=== PATIENT | female | born 1945 | race Caucasian/White ===

== ENCOUNTER 2020-10-04 08:01 | Outpatient (REF) | payer MEDICARE, SELFPAY | END 2020-10-04 08:02 | disposition home or self-care (01) | LOC: HO.HMGCLDS 08:01 | PROVIDERS: PCP Internal Medicine; Visit Provider Internal Medicine | DX: Z20.828 Contact with and (suspected) exposure to other viral communicable diseases (principal) | CPT/HCPCS: C9803; U0003 ==

== ENCOUNTER 2020-10-14 15:06 | Outpatient (REF) | payer MEDICARE, SELFPAY ==
--- NOTE | 2020-10-14 15:11 | MM_ITS ---
EXAMINATION: MM SCREENING DIGITAL BREAST TOMOSYNTHESIS, BILATERAL CLINICAL INFORMATION: Screening. Asymptomatic. The lifetime risk of breast cancer based on the Tyrer-Cuzick Model is 2%. COMPARISON: Mammography: 10/09/2019, 08/22/2018, 07/30/2017, 07/02/2016 TECHNIQUE: Digital breast tomosynthesis is performed in both the craniocaudal and mediolateral oblique views along with computer-aided detection (CAD). Synthesized 2D images are generated from the tomosynthesis. FINDINGS: There are scattered areas of fibroglandular density (ACR BI-RADS breast composition Category b). There are no significant masses, abnormal calcifications, or other abnormalities. Inhomogeneous parenchymal pattern is similar to prior exams. No developing density. The axilla and skin contours are unremarkable. MM/MM tomosynthesis screening BI IMPRESSION: No significant changes from prior studies. ASSESSMENT: BI-RADS 1: Negative RECOMMENDATION: Routine annual mammography screening. This patient's information was entered into a reminder system with a target due date for their next mammogram.
== END 2020-10-14 15:07 | disposition home or self-care (01) ==
LOC: HO.MAMMO 15:06
PROVIDERS: PCP Internal Medicine; Visit Provider Internal Medicine
DX: Z12.31 Encounter for screening mammogram for malignant neoplasm of breast (principal)
CPT/HCPCS: 77063; 77067

== ENCOUNTER 2021-01-29 10:52 | Outpatient (REF) | payer MEDICARE, SELFPAY ==
[2021-01-29 13:50] LABS: MANUAL DIFF FLAG NO
[2021-01-29 14:01] LABS: Basophils Absolute Auto 0.1 X10*3/uL (0.0-0.2); Basophils Percent Auto 0.6 % (0-2); Eosinophils Absolute Auto 0.1 X10*3/uL (0.0-0.4); Eosinophils Percent Auto 0.6 % (0-4); Hematocrit 46.2 % (37-47); Hemoglobin 15.1 g/dl (12.0-16.0); Imm Gran Abs Auto 0.03 X10*3/uL (0.00-0.03); Imm Gran Pct Auto 0.4 % (0.0-0.4); Lymphocytes Absolute Auto 2.4 X10*3/uL (1.2-4.9); Lymphocytes Percent Auto 29.7 % (20-40); Mean Corpuscular HGB Conc 32.7 g/dl (31.0-35.0); Mean Corpuscular Hemoglobin 32.1 pg (27.0-33.0); Mean Corpuscular Volume 98.3 fL (80-98); Mean Platelet Volume 9.9 fL (9.4-12.3); Monocytes Absolute Auto 0.6 X10*3/uL (0.1-1.2); Monocytes Percent Auto 7.8 % (2-11); Neutrophils Percent Auto 60.9 % (45-73); Platelet Count 320 X10*3/uL (160-400); Red Cell Distribution Width 12.3 % (11.0-16.0); White Blood Count 8.2 X10*3/uL (4.8-10.8)
[2021-01-29 14:15] LABS: Alanine Aminotransferase 16 U/L (0-31); Albumin Level 4.5 g/dL (3.5-5.0); Alkaline Phosphatase 114 U/L (39-117); Anion Gap 13 (12-20); Aspartate Amino Transferase 22 U/L (5-31); Blood Urea Nitrogen 21 mg/dL (9-16); C Reactive Protein 0.71 mg/dL (< or = 0.50); Calcium 9.3 mg/dL (8.4-10.2); Carbon Dioxide 25 mmol/L (22-29); Chloride 104 mmol/L (96-108); Estimated Glomerular Filt Rate > 60; Glucose Random 88 mg/dL (60-115); Potassium 4.4 mmol/L (3.3-5.1); Sodium 138 mmol/L (135-145); Total Protein 7.7 g/dL (6.5-8.0)
[2021-01-29 14:38] LABS: Free T4 (Free Thyroxine) 1.06 ng/dL (0.71-1.85); Thyroid Stimulating Hormone 1.97 uIU/mL (0.32-4.0)
== END 2021-01-29 10:53 | disposition home or self-care (01) ==
LOC: HO.10HDL 10:52
PROVIDERS: Visit Provider Internal Medicine
DX: I10 Essential (primary) hypertension (principal); R00.2 Palpitations; R07.89 Other chest pain
CPT/HCPCS: 36415; 80053; 82550; 84439; 84443; 85025; 86140

== ENCOUNTER → 2021-01-31 08:50 | Outpatient (REF) | payer MEDICARE, SELFPAY ==
--- NOTE | 2021-01-31 09:15 | CA_ITS ---
Acquisition Time: 2021-01-31 09:55:31 Total Exercise Time: 00:07:31 Test Indications: Chest Pain Medications: Protocol: MATT Max HR: 131 BPM 90% of Pred: 144 BPM Max BP: 130/080 mmHG Max Work Load: 9.3 METS PT EXERCISED ON STD MATT PROTOCOL FOR 730 MIN INTO STAGE 3. MAX HR 131-90% MAX. NO CP . SOME MILD SOB. ST DEP IN INF/LAT LEADS.CLINICALLY EQUIV, ELEC EQUIV. PT MAY NEED MIBI EVAL Referred By: Jacinto Martinez Overread By: TERE MARTINEZ MD
== END ==
LOC: HO.CARD 08:50
PROVIDERS: PCP Internal Medicine; Visit Provider Internal Medicine
DX: R07.9 Chest pain, unspecified (principal); R00.2 Palpitations
CPT/HCPCS: 93017

== ENCOUNTER → 2021-02-12 08:11 | Outpatient (REF) | payer MEDICARE, SELFPAY ==
--- NOTE | ~2021-02-12 | NM_ITS ---
Exercise Myocardial perfusion study Indication: NSVT to evaluate for myocardial ischemia Technique: The patient was brought in for an exercise perfusion study on 02/12/2021. Patient performed exercise as per Bj protocol and was injected 25 mCi of sestamibi was given intravenously one target HR was achieved. Images were obtained using the SPECT gamma camera interlaced with the gating device. Images were obtained in supine position. Resting perfusion study was performed on 02/13/2021. Patient was administered 25 mCi of sestamibi intravenously at rest. Images were then obtained in supine position. Images obtained with and without CT attenuation. Total DLP 68 mGy-cm. Images were processed with the software and compared side to side in short axis, horizontal long axis and vertical long axis views. Findings: The stress perfusion study showed both attenuated and not attenuated corrected images show normal uptake of radiotracer in all segments of LV myocardium. The gated study shows normal LV systolic function with calculated LVEF of greater than 70 %. LV cavity is normal in size. The gated study shows normal systolic wall thickening and contraction of all segments. There is no transient ischemic dilation. Resting study shows no change in perfusion pattern compared to stress perfusion study. Gating at rest reveals normal systolic wall motion with ejection fraction at greater than 70 %. The findings are consistent with normal myocardial perfusion. NM/NM damaris perf SPECT rest & str Impression: 1. Normal myocardial perfusion 2. Gated LVEF is greater than 70% 3. Transient ischemic dilatation not present Stress EKG is positive for ischemia
--- NOTE | 2021-02-12 08:30 | CA_ITS ---
Acquisition Time: 2021-02-12 08:16:11 Total Exercise Time: 00:07:14 Test Indications: Abnormal Treadmill Test Medications: AMLODIPINE ATENOLOL LESINOPRIL Protocol: MATT Max HR: 133 BPM 92% of Pred: 144 BPM Max BP: 180/080 mmHG Max Work Load: 8.8 METS PT EXERCISED ON STD MATT PROTOCOL FOR 714 INTO STAGE 3. MAX HR 133-92%MAX. NO CP BUT PT C/O SOB. STDEP OF 2MM IN INF/LAT LEADS. OCC PVC'S AND PAC'S. NL BP RESPONSE. CLINICALLY AND ELEC POSITIVE. AWAIT SCAN RESULTS. Referred By: Jacinto Martinez Overread By: TERE MARTINEZ MD
== END ==
LOC: HO.CARD 08:11
PROVIDERS: Visit Provider Internal Medicine
DX: R94.39 Abnormal result of other cardiovascular function study (principal); I47.2 Ventricular tachycardia; R06.02 Shortness of breath
CPT/HCPCS: 78452; 93017; A9500

== ENCOUNTER → 2021-02-17 12:51 | Outpatient (BNVA) | payer MEDICARE, SELFPAY | PROVIDERS: PCP Internal Medicine; Visit Provider Internal Medicine Cardiovascular Disease | DX: I10 Essential (primary) hypertension (principal); R94.39 Abnormal result of other cardiovascular function study; Z79.899 Other long term (current) drug therapy | CPT/HCPCS: 93005; 99202 ==

== ENCOUNTER → 2021-04-02 14:43 | Outpatient (REF) | payer MEDICARE, SELFPAY ==
--- NOTE | 2021-04-02 14:45 | CA_ITS ---
Transthoracic Echocardiogram Patient (Last, First, Middle): Jeniffer Zaldivar, Gender: Female Date of : 1945 Age: 76 Procedure Date: 04/02/2021 Procedure Type: Transthoracic Echocardiogram Location: OP Height: 167.64 cm Weight: 68.04 kg BSA: 1.77 m2 Heart Rate: bpm BP: 128 / 76 mmHg Bankruptcy Legal Assistant: JENNIFER Referring MD: Neil Gary MD Symptoms: R94.39 - Abnormal result of other cardiovascular function study Study Quality: Good ECG Rhythm: Sinus Conclusions: - The left ventricular systolic function is normal. The visually estimated ejection fraction is between 60-65%. - Mildly increased right ventricular cavity size. - There is mild mitral annular calcification. There is mild mitral valve regurgitation. - There is mild tricuspid valve regurgitation. Findings Left Ventricle Normal left ventricular cavity size. There is normal left ventricular wall thickness. The left ventricular systolic function is normal. The visually estimated ejection fraction is between 60-65%. There is no evidence of regional wall motion abnormalities. E/E prime ratio is between 8 and 15 consistent with indeterminate filling pressures. Evidence suggests grade I (mild) diastolic dysfunction. Right Ventricle Mildly increased right ventricular cavity size. There is normal right ventricular systolic function. Atria Mild biatrial enlargement. Aortic Valve There is a normal trileaflet aortic valve. There is no aortic valve stenosis. There is no aortic valve regurgitation. Mitral Valve There is mild mitral annular calcification. There is mild mitral valve regurgitation. There is no mitral valve stenosis. Pulmonic Valve The pulmonic valve was not well visualized. There is mild pulmonic valve regurgitation. Tricuspid Valve Normal tricuspid valve structure. There is mild tricuspid valve regurgitation. Top normal RVSP. Great Vessels The aortic annulus, sinuses of valsalva, and asc aorta are normal in size. Venous The inferior vena cava is normal in size and collapses greater than 50% with inspiration. Pericardium/Pleural There is no evidence of pericardial effusion. Prior Study Comparison No prior study available for comparison. Measurements 2D Linear Measurements IVSd: 1.07 0.6-0.9/0.6-1.0 cm LVIDd: 4.22 3.9-5.3/4.2-5.9 cm LVIDd Index: 2.38 2.4-3.2/2.2-3.1 cm/m2 LVIDs: 2.34 2.0-3.6 cm LVPWd: 1.06 0.7-1.1 cm Ao Root: 3.20 2.1-3.5 cm LA Diam: 3.80 2.7-3.8/3.0-4.0 cm LAIDs Index: 2.15 1.5-2.3 cm/m2 LV Mass: 188.13 67-162/88-224 g LV Mass Index: 106.29 43-95/49-115 g/m2 LVOT Diam: 2.00 3.0+(-)1.3 cm 2D Systolic Function EF 4C: 63.50 >55% EF 2C: 60.80 >55% EF BiP: 62.10 >55% Mitral Valve MV Pk E: 0.88 MV PK A: 0.99 MV Decel Time: 222.00 E/A: 0.90 E'Lateral: 8.90 E'Medial: 4.84 E/E' Med: 18.20 E/E' Lat: 9.90 PHT: 65.00 MVA PHT: 3.38 Decel Harper: 3.98 Aortic Valve AoV Pk Peterson: 1.49 AoV Mn Peterson: 1.02 AoV VTI: 0.33 AoV Pk Grad: 9.00 Aov Mn Grad: 5.00 AKHIL Cont.VTI: 2.13 LVOT LVOT Pk Peterson: 1.06 LVOT Mn Peterson: 0.64 LVOT VTI: 0.22 LVOT Pk Grad: 4.00 LVOT Mn Grad: 2.00 LVOT Diam: 2.00 LVOT Area: 3.14 Diastolic Function MV Pk E: 0.88 MV Pk A: 0.99 E/A: 0.90 E'Medial: 4.84 E/E' Med: 18.20 E' Laterial: 8.90 E/E' Lat: 9.90 Tricuspid Valve TR Pk Peterson: 2.85 TR Pk Grad: 32.00 RA Press: 3.00 RVSP: 35.00 Great Vessels Aorta Ao Root-2D: 3.20 2.0-3.7 cm Ao Asc: 3.10 2.1-3.4 cm Updated in Other Vendor System with Status of Final Luke Silverman MD electronically signed on 04/04/2021 3:35:36 PM with status of Final
== END ==
LOC: HO.CARD 14:43
PROVIDERS: Visit Provider Internal Medicine Cardiovascular Disease
DX: R06.02 Shortness of breath (principal); I10 Essential (primary) hypertension; R94.39 Abnormal result of other cardiovascular function study
CPT/HCPCS: 93306

== ENCOUNTER → 2021-04-17 08:43 | Outpatient (REF) | payer MEDICARE, SELFPAY ==
--- NOTE | 2021-04-17 11:45 | ECG_ITS ---
Hook-up date: 2021-04-17 08:58:00 Duration: 28:36:00 Test Indications: PALPITATIONS Medications: 58487 QRS complexes 496 Ventricular ectopics which represent <1 % of total QRS comp. 23 Supraventricular ectopics which represent <1 % of total QRS comp. * Paced QRS complexs which represent % of total QRS comp. VENTRICULAR ECTOPY 486 Isolated 0 Bigeminal Cycles 5 Couplets 0 Runs 0 Beats in Runs * Beats LONGEST at * BPM at :: -- * Beats FASTEST at * BPM at :: -- SUPRAVENTRICULAR ECTOPY 19 Isolated 2 Couplets 0 Runs 0 Beats in Runs * Beats LONGEST at * BPM at :: -- * Beats FASTEST at * BPM at :: -- HEART RATES 45 MIN at 04:48:11 2021-04-18 62 AVG 83 MAX at 08:01:17 2021-04-18 LONGEST RR 1.6720 secs at 08:40:44 2021-04-18 S-T LEVELS Channel 1 - 128 mm at 08:58:00 2021-04-17 - 128 mm at 08:58:00 2021-04-17 Channel 2 - 128 mm at 08:58:00 2021-04-17 - 128 mm at 08:58:00 2021-04-17 Channel 3 - 128 mm at 02:81:71 -- - 128 mm at 02:81:71 Underlying rhythm is sinus; Average ventricular rate 62/min; range 45-83/min; Rare PVCs- mostly isolated; some couplets; Rare PACs; Patient diary not available for review. Referred By: Neil Gary Overread By: SCOTT YARBROUGH
== END ==
LOC: HO.CARD 08:43
PROVIDERS: PCP Internal Medicine; Referring Provider Internal Medicine; Visit Provider Internal Medicine Cardiovascular Disease
DX: R00.2 Palpitations (principal)
CPT/HCPCS: 93226

== ENCOUNTER → 2021-05-01 10:49 | Outpatient (REF) | payer MEDICARE, SELFPAY ==
--- NOTE | 2021-05-01 10:54 | HM_ITS ---
INDICATION: Palpitation. INTERPRETATION: The patient was hooked up to cardiac event monitor from 05/01/2021 to 05/31/2021 for a total of 30 days. The patient's baseline rhythm was normal sinus rhythm with heart rate varying from 60 to 80 beats per minute. There were no arrhythmias noted. The patient reported few events of palpitation that correlated with sinus rhythm. CONCLUSION: Cardiac event monitor is remarkable: 1. Baseline normal sinus rhythm with no significant arrhythmias. 2. The patient reported palpitations correlated with sinus rhythm. MD CONCEPCION Zurita/MODL / [id number]
== END ==
LOC: HO.CARD 10:49
PROVIDERS: PCP Internal Medicine; Visit Provider Internal Medicine Cardiovascular Disease
DX: R00.2 Palpitations (principal)
CPT/HCPCS: 93270

== ENCOUNTER → 2021-08-11 09:54 | Outpatient (BNVA) | payer MEDICARE, SELFPAY | PROVIDERS: PCP Internal Medicine; Referring Provider Internal Medicine; Visit Provider Internal Medicine Cardiovascular Disease | DX: R94.39 Abnormal result of other cardiovascular function study (principal); I10 Essential (primary) hypertension | CPT/HCPCS: 99212 ==

== ENCOUNTER 2021-11-10 09:13 | Outpatient (REF) | payer MEDICARE, SELFPAY ==
--- NOTE | ~2021-11-10 | MM_ITS ---
EXAMINATION: MM SCREENING DIGITAL BREAST TOMOSYNTHESIS, BILATERAL CLINICAL INFORMATION: Screening. Asymptomatic. The lifetime risk of breast cancer based on the Tyrer-Cuzick Model is 2%. COMPARISON: Mammography: 10/14/2020, 10/09/2019, 08/22/2018 TECHNIQUE: Digital breast tomosynthesis is performed in both the craniocaudal and mediolateral oblique views along with computer-aided detection (CAD). Synthesized 2D images are generated from the tomosynthesis. FINDINGS: There are scattered areas of fibroglandular density (ACR BI-RADS breast composition Category b). There are no significant masses, abnormal calcifications, or other abnormalities. There are some scattered round and vascular calcifications. The axilla and skin contours are unremarkable. No developing density. No significant changes. MM/MM tomosynthesis screening BI IMPRESSION: No mammographic evidence of malignancy. ASSESSMENT: BI-RADS 2: Benign RECOMMENDATION: Routine annual mammography screening. This patient's information was entered into a reminder system with a target due date for their next mammogram.
== END 2021-11-10 09:14 | disposition home or self-care (01) ==
LOC: HO.MAMMO 09:13
PROVIDERS: Visit Provider Internal Medicine
DX: Z12.31 Encounter for screening mammogram for malignant neoplasm of breast (principal)
CPT/HCPCS: 77063; 77067

== ENCOUNTER 2022-02-16 09:23 | Outpatient (REF) | payer MEDICARE, SELFPAY ==
[2022-02-16 11:42] LABS: MANUAL DIFF FLAG NO
[2022-02-16 11:55] LABS: Basophils Absolute Auto 0.1 X10*3/uL (0.0-0.2); Basophils Percent Auto 0.7 % (0-2); Eosinophils Absolute Auto 0.2 X10*3/uL (0.0-0.4); Eosinophils Percent Auto 3.1 % (0-4); Hematocrit 44.9 % (37.0-47.0); Hemoglobin 14.7 g/dl (12.0-16.0); Imm Gran Abs Auto 0.04 X10*3/uL (0.00-0.03); Imm Gran Pct Auto 0.6 % (0.0-0.4); Lymphocytes Absolute Auto 2.7 X10*3/uL (1.2-4.9); Lymphocytes Percent Auto 38.8 % (20-40); Mean Corpuscular HGB Conc 32.7 g/dl (31.0-35.0); Mean Corpuscular Hemoglobin 32.2 pg (27.0-33.0); Mean Corpuscular Volume 98.5 fL (80.0-98.0); Mean Platelet Volume 9.9 fL (9.4-12.3); Monocytes Absolute Auto 0.7 X10*3/uL (0.1-1.2); Monocytes Percent Auto 9.8 % (2-11); Neutrophils Absolute Auto 3.3 x10*3/uL (2.0-8.3); Platelet Count 251 X10*3/uL (160-400); Red Blood Count 4.56 X10*6/uL (4.20-5.50); Red Cell Distribution Width 12.7 % (11.0-16.0)
[2022-02-16 12:06] LABS: Alanine Aminotransferase 23 U/L (0-31); Albumin Level 4.1 g/dL (3.5-5.0); Alkaline Phosphatase 107 U/L (39-117); Anion Gap 12 (12-20); Aspartate Amino Transferase 23 U/L (5-31); Blood Urea Nitrogen 19 mg/dL (9-16); Calcium 9.4 mg/dL (8.4-10.2); Carbon Dioxide 24 mmol/L (22-29); Chloride 107 mmol/L (96-108); Cholesterol 183 mg/dL; Estimated Glomerular Filt Rate > 60; Glucose Fasting 90 mg/dL (60-99); HDL Cholesterol 45 mg/dL; LDL Cholesterol Calculated 105 mg/dl; Potassium 4.6 mmol/L (3.3-5.1); Sodium 138 mmol/L (135-145); Total Protein 7.1 g/dL (6.5-8.0); Triglycerides 168 mg/dL
== END 2022-02-16 09:24 | disposition home or self-care (01) ==
LOC: HO.HMGCLDS 09:23
PROVIDERS: Visit Provider Internal Medicine
DX: Z00.00 Encounter for general adult medical examination without abnormal findings (principal); E78.00 Pure hypercholesterolemia, unspecified; I10 Essential (primary) hypertension
CPT/HCPCS: 36415; 80053; 80061; 85025

== ENCOUNTER 2022-02-20 10:45 | Outpatient (REF) | payer MEDICARE, SELFPAY ==
--- NOTE | ~2022-02-20 | MM_ITS ---
EXAMINATION: BONE DENSITOMETRY CLINICAL INDICATION: Asymptomatic menopausal state. COMPARISON: Baseline BD dated 02/08/2007. TECHNIQUE: Using a [employer] DXA System (software version: 13.1) manufactured by [employer], dual-energy x-ray absorptiometry was performed of the lumbar spine and left hip. The images are of good technical quality. Summary results are attached. FINDINGS: AP SPINE L1-L4: Current: BMD 0.973 g/cm2, Z-score -0.3, T-score -1.7, osteopenia, 8.6% decrease from baseline (<5% change is not significant). Baseline: BMD 1.065 g/cm2. LEFT FEMUR, NECK: Current: BMD 0.883 g/cm2, Z-score 0.7, T-score -1.1, osteopenia. Baseline: BMD 0.901 g/cm2. LEFT FEMUR, TOTAL: Current: BMD 0.766 g/cm2, Z-score -0.3, T-score -1.9, osteopenia, 16.5% decrease from baseline (<5% change is not significant). Baseline: BMD 0.917 g/cm2. IDENTIFIED RISK FACTORS: Secondary osteoporosis (early menopause). Hysterectomy. Bilateral oophorectomy. HISTORY OF FRACTURE: None listed. MEDICATIONS: Calcium supplement and/or multivitamin. Vitamin D. MM/XR DEXA axial skeleton IMPRESSION: 1. DIAGNOSIS: Osteopenia based on the lowest T-score value of -1.9 in the total femur applying World Health Organization criteria. 2. 10-YEAR FRACTURE RISK PREDICTION, FRAX: Major osteoporotic fracture (clinical spine, forearm, hip or shoulder) 11.1%. Hip fracture 2.1%. 3. Treatment Recommendations: NOF guidelines recommend consideration for treatment in postmenopausal women and men age 50 and older presenting with the following: -A hip or vertebral (clinical or morphometric) fracture. -T-score less than or equal to -2.5 at the femoral neck or spine after appropriate evaluation to exclude secondary causes. -Low bone mass at the hip or spine and a 10-year fracture probability by FRAX of greater than or equal to 3% for hip fracture or greater than or equal to 20% for major osteoporotic fracture based on the [place] adapted WHO algorithm. 4. Other Recommendations: All treatment decisions require clinical judgment and consideration of individual patient factors, including patient preferences, comorbidities, previous drug use, risk factors not captured in the FRAX model (e.g. frailty, falls, vitamin D deficiency, increased bone turnover, interval significant decline in bone density) and possible under or overestimation of fracture risk by FRAX. Additional medical evaluation for secondary cause of low bone mineral density may be appropriate. FUTURE SCAN RECOMMENDATION: People with diagnosed cases of osteoporosis or at high risk for fracture should have regular bone mineral density tests. For patients eligible for Medicare, routine testing is allowed once every 2 years. The testing frequency can be increased to one year for patients who have rapidly progressing disease, those who are receiving or discontinuing medical therapy to restore bone mass, or have additional risk factors.
== END 2022-02-20 10:46 | disposition home or self-care (01) ==
LOC: HO.MAMMO 10:45
PROVIDERS: Visit Provider Internal Medicine
DX: Z13.820 Encounter for screening for osteoporosis (principal); M85.80 Other specified disorders of bone density and structure, unspecified site; Z78.0 Asymptomatic menopausal state
CPT/HCPCS: 77080

== ENCOUNTER → 2022-08-04 13:12 | Outpatient (BNVA) | payer MEDICARE, SELFPAY | PROVIDERS: PCP Internal Medicine; Referring Provider Internal Medicine; Visit Provider Internal Medicine Cardiovascular Disease | DX: I10 Essential (primary) hypertension (principal) | CPT/HCPCS: 93005; 99212 ==

== ENCOUNTER 2022-11-19 09:26 | Outpatient (REF) | payer MEDICARE, SELFPAY | END 2022-11-19 09:27 | disposition home or self-care (01) | LOC: HO.MAMMO 09:26 | PROVIDERS: PCP Internal Medicine; Visit Provider Internal Medicine | DX: Z12.31 Encounter for screening mammogram for malignant neoplasm of breast (principal) | CPT/HCPCS: 77063; 77067 ==

== ENCOUNTER 2023-04-15 08:30 | Outpatient (REF) | payer MEDICARE, SELFPAY ==
[2023-04-15 11:21] LABS: MANUAL DIFF FLAG NO
[2023-04-15 11:39] LABS: Basophils Absolute Auto 0.1 X10*3/uL (0.0-0.2); Basophils Percent Auto 0.8 % (0-2); Eosinophils Absolute Auto 0.2 X10*3/uL (0.0-0.4); Eosinophils Percent Auto 2.6 % (0-4); Hematocrit 46.3 % (37.0-47.0); Hemoglobin 15.1 g/dl (12.0-16.0); Imm Gran Abs Auto 0.03 X10*3/uL (0.00-0.03); Imm Gran Pct Auto 0.4 % (0.0-0.4); Lymphocytes Absolute Auto 3.2 X10*3/uL (1.2-4.9); Lymphocytes Percent Auto 41.4 % (20-40); Mean Corpuscular HGB Conc 32.6 g/dl (31.0-35.0); Mean Corpuscular Volume 98.1 fL (80.0-98.0); Mean Platelet Volume 9.5 fL (9.4-12.3); Monocytes Absolute Auto 0.7 X10*3/uL (0.1-1.2); Monocytes Percent Auto 8.8 % (2-11); Neutrophils Absolute Auto 3.6 x10*3/uL (2.0-8.3); Platelet Count 291 X10*3/uL (160-400); Red Blood Count 4.72 X10*6/uL (4.20-5.50); Red Cell Distribution Width 12.9 % (11.0-16.0); White Blood Count 7.8 X10*3/uL (4.8-10.8)
[2023-04-15 11:56] LABS: Alanine Aminotransferase 20 U/L (0-31); Albumin Level 4.2 g/dL (3.5-5.0); Alkaline Phosphatase 97 U/L (39-117); Anion Gap 11 (12-20); Aspartate Amino Transferase 27 U/L (5-31); Bilirubin Total 1.2 mg/dL (0.0-1.0); Blood Urea Nitrogen 20 mg/dL (9-16); Calcium 9.5 mg/dL (8.4-10.2); Carbon Dioxide 25 mmol/L (22-29); Chloride 107 mmol/L (96-108); Cholesterol 182 mg/dL; Estimated Glomerular Filt Rate 57; Glucose Fasting 89 mg/dL (60-99); HDL Cholesterol 44 mg/dL; LDL Cholesterol Calculated 106 mg/dl; Potassium 4.4 mmol/L (3.3-5.1); Sodium 139 mmol/L (135-145); Total Protein 7.2 g/dL (6.5-8.0); Triglycerides 160 mg/dL
[2023-04-15 12:11] LABS: Vitamin D 25-OH Total 48.9 ng/mL (>30)
== END 2023-04-15 08:31 | disposition home or self-care (01) ==
LOC: HO.HMGCLDS 08:30
PROVIDERS: PCP Internal Medicine; Visit Provider Internal Medicine
DX: I10 Essential (primary) hypertension (principal); E78.00 Pure hypercholesterolemia, unspecified; K57.90 Diverticulosis of intestine, part unspecified, without perforation or abscess without bleeding; M85.80 Other specified disorders of bone density and structure, unspecified site
CPT/HCPCS: 36415; 80053; 80061; 82306; 85025

== ENCOUNTER 2023-11-26 09:22 | Outpatient (REF) | payer MEDICARE, SELFPAY ==
--- NOTE | ~2023-11-26 | MM_ITS ---
EXAMINATION: MM SCREENING DIGITAL BREAST TOMOSYNTHESIS, BILATERAL CLINICAL INFORMATION: Screening. Asymptomatic. COMPARISON: Mammography: 11/19/2022, 11/10/2021, 10/14/2020, and dating back to 2014. TECHNIQUE: Digital breast tomosynthesis is performed in both the craniocaudal and mediolateral oblique views along with computer-aided detection (CAD). Synthesized 2D images are generated from the tomosynthesis. FINDINGS: There are scattered areas of fibroglandular density (ACR BI-RADS breast composition Category b). There are no suspicious masses, suspicious grouped calcifications, or areas of architectural distortion in either breast. The parenchymal pattern is stable from prior exams. No skin or axillary abnormality. MM/MM tomosynthesis screening BI IMPRESSION: No mammographic evidence of malignancy. ASSESSMENT: BI-RADS BI-RADS 1 - Negative RECOMMENDATION: Routine annual mammography screening. 1 year F/U This examination should not preclude the clinical evaluation of a suspicious palpable abnormality. This patient's information was entered into a reminder system with a target due date for their next mammogram.
== END 2023-11-26 09:23 | disposition home or self-care (01) ==
LOC: HO.MAMMO 09:22
PROVIDERS: PCP Internal Medicine; Visit Provider Internal Medicine
DX: Z12.31 Encounter for screening mammogram for malignant neoplasm of breast (principal)
CPT/HCPCS: 77063; 77067

== ENCOUNTER → 2023-11-26 09:30 | Outpatient (BNV) | payer MEDICARE, SELFPAY | PROVIDERS: PCP Internal Medicine; Visit Provider Radiology Diagnostic Radiology | DX: Z12.31 Encounter for screening mammogram for malignant neoplasm of breast (principal) | CPT/HCPCS: 77063; 77067 ==

== ENCOUNTER 2024-04-17 10:22 | Outpatient (REF) | payer MEDICARE, SELFPAY ==
[2024-04-17 11:12] LABS: MANUAL DIFF FLAG NO
[2024-04-17 11:18] LABS: Basophils Absolute Auto 0.1 X10*3/uL (0.0-0.2); Basophils Percent Auto 0.7 % (0-2); Eosinophils Absolute Auto 0.2 X10*3/uL (0.0-0.4); Eosinophils Percent Auto 3.1 % (0-4); Hematocrit 46.5 % (37.0-47.0); Hemoglobin 15.4 g/dl (12.0-16.0); Imm Gran Abs Auto 0.02 X10*3/uL (0.00-0.03); Imm Gran Pct Auto 0.3 % (0.0-0.4); Lymphocytes Absolute Auto 2.5 X10*3/uL (1.2-4.9); Lymphocytes Percent Auto 36.2 % (20-40); Mean Corpuscular HGB Conc 33.1 g/dl (31.0-35.0); Mean Corpuscular Hemoglobin 32.2 pg (27.0-33.0); Mean Corpuscular Volume 97.1 fL (80.0-98.0); Mean Platelet Volume 9.6 fL (9.4-12.3); Monocytes Absolute Auto 0.6 X10*3/uL (0.1-1.2); Monocytes Percent Auto 9.3 % (2-11); Neutrophils Absolute Auto 3.4 x10*3/uL (2.0-8.3); Neutrophils Percent Auto 50.4 % (45-73); Platelet Count 266 X10*3/uL (160-400); Red Blood Count 4.79 X10*6/uL (4.20-5.50); White Blood Count 6.8 X10*3/uL (4.8-10.8)
[2024-04-17 11:19] LABS: Appearance Urine Clear; Color Urine Yellow; Glucose Urine UA Negative (Negative); Leukocyte Esterase Urine Moderate (2+) (Negative); Nitrite Urine Negative (Negative); Specific Gravity - Urine 1.015 (1.005-1.025); UMIC TRIGGER UA YES; Urine Blood Negative (Negative); Urine Ketones Negative (Negative); Urine Protein Negative (Neg-Trace)
[2024-04-17 11:31] LABS: Bacteria Urine None Seen (None Seen); Hyaline Casts Urine 0-2 /LPF (0-2); RBC Urine 0-2 /HPF (0-2); Squamous Epithelial Cell Urine 0-2 /HPF (0-2); WBC Urine 0-5 /HPF (0-5)
[2024-04-17 11:34] LABS: Alanine Aminotransferase 18 U/L (0-31); Albumin Level 4.3 g/dL (3.5-5.0); Alkaline Phosphatase 100 U/L (39-117); Anion Gap 15 (12-20); Aspartate Amino Transferase 23 U/L (5-31); Blood Urea Nitrogen 20 mg/dL (9-16); Calcium 10.1 mg/dL (8.4-10.2); Carbon Dioxide 25 mmol/L (22-29); Chloride 108 mmol/L (96-108); Cholesterol 178 mg/dL (<200); Estimated Glomerular Filt Rate 53; Glucose Fasting 88 mg/dL (60-99); HDL Cholesterol 52 mg/dL (>40); LDL Cholesterol Calculated 104 mg/dL (<100); Potassium 4.8 mmol/L (3.3-5.1); Sodium 143 mmol/L (135-145); Total Protein 7.7 g/dL (6.5-8.0); Triglycerides 113 mg/dL (<150)
== END 2024-04-17 10:23 | disposition home or self-care (01) ==
LOC: HO.10HDL 10:22
PROVIDERS: Visit Provider Internal Medicine
DX: K57.90 Diverticulosis of intestine, part unspecified, without perforation or abscess without bleeding (principal); I12.9 Hypertensive chronic kidney disease with stage 1 through stage 4 chronic kidney disease, or unspecified chronic kidney disease; N18.9 Chronic kidney disease, unspecified
CPT/HCPCS: 36415; 80053; 80061; 81001; 85025

== ENCOUNTER 2024-08-07 09:30 | Outpatient (AMB) | payer MEDICARE, SELFPAY ==
--- NOTE | 2024-08-07 09:36 | MHC.OFFVIS ---
Vital Signs 08/07/24 09:37 Height 5 ft 6 in Weight 143 lb 4.807 oz BMI 23.1 BP 128/82 Blood Pressure Location Lt brachial Position Sitting Pulse 60 Intake Visit Reasons: 2 year fu w/ ekg Intake Note: 2 year follow-up with ekg feeling ok on her bp cuff irregular beat come up [employer] Required: No Allergies Sulfa (Sulfonamide Antibiotics) Allergy (Verified 02/17/21 13:11) joint pain, fever, rash Medication List - Last Reconciled 08/07/24 by Neil Gary MD amlodipine 5 mg PO DAILY atenolol 50 mg PO DAILY lisinopril 20 mg PO DAILY HPI Comments Details: Jeniffer comes for follow-up. She has been doing very well overall. She has been exercising and walks for 30 minutes on a regular basis. Denies any exertional chest pain or shortness of breath. Occasionally notices irregular heartbeat with measuring blood pressure. Denies any symptoms of palpitation. No prolonged irregular heartbeat or palpitation. No lightheadedness, syncope. No orthopnea, PND, leg edema. Her blood pressures at home are generally well controlled. [facility] Medical History HTN (hypertension) Family History Father No problems noted. Mother CVD (cardiovascular disease) Review of Systems Const Denies chills, Denies fatigue, Denies fever(s), Denies frequent falls, Denies weakness, Denies weight gain and Denies weight loss ENT Denies dizziness Card Denies chest pain, Denies leg edema, Denies lightheadedness, Denies palpitations, Denies dyspnea, Denies dyspnea on exertion, Denies orthopnea and Denies other (loss of consciousness) Resp Denies cough, Denies dyspnea and Denies dyspnea on exertion GI Denies hematochezia and Denies change in stool character Musc Denies abnormal gait, Denies muscle weakness, Denies numbness, Denies radiating pain into limb and Denies tingling Neuro Denies abnormal gait, Denies dizziness, Denies frequent falls, Denies numbness, Denies tingling and Denies weakness Endo Denies fatigue and Denies palpitations Physical Exam Vital Signs: Last Vital Signs Pulse 60 08/07/24 09:37 BP 128/82 08/07/24 09:37 BMI result Body Mass Index 23.1 Const General: cooperative, comfortable, no acute distress, alert, awake and well groomed Nutritional Appearance: thin Orientation/consciousness: patient oriented x3 Limitations: no limitations HEENT Head: Yes normocephalic and Yes atraumatic Neck Neck: Yes trachea midline, Yes supple and Yes no JVD Resp Effort & Inspection: normal respiratory effort Auscultation: clear to auscultation bilaterally Cardio Jugular venous distension: no JVD Palpation: normal PMI Rate: regular rate Rhythm: regular rhythm Heart sounds: S1 normal heart sound present and S2 normal heart sound present GI Auscultation: normal bowel sounds Skin General skin exam: no rashes or lesions noted Neuro General: patient oriented x3 and no focal motor deficits Extrem General: Yes no clubbing, cyanosis or edema Psych Appearance: grossly normal Office Procedures EKG Details: EKG shows normal sinus rhythm with septal QS pattern which is unchanged with nonspecific ST T wave changes [id number], Complete Assessment & Plan Assessment & Plan (1) HTN (hypertension): Code(s): I10 - Essential (primary) hypertension Category: Medical Plan: Hypertension which is currently well optimized on current medications. At home blood pressure is well optimized. She occasionally feels irregular heartbeat which most consistent with PVCs but no symptoms related to it. No change in therapy. Advised to continue maintain activity level as tolerated. Noted some minor EKG changes suggestive of maybe hypertensive heart disease. Will set up for an echocardiogram near future to assess any changes in LV function and morphology. This was discussed with her. Continue to monitor for any symptoms advised to call me with any new symptoms. Will follow up in the clinic in 2 years, sooner p.r.n.. Thank you for allowing me to partake in his care Orders: Orders CA echo transthoracic complete Today I10 - Essential (primary) hypertension Coding Level of Care Code Est Pt Level 3 (98658) Diagnoses HTN (hypertension) I10 CPT Codes EKG - CPT: 91084-[id number], Complete ([id number])
[2024-08-07 09:37] VITALS: BP 128/82; PULSE 60; BMI 23.1
== END 2024-08-07 09:58 | disposition home or self-care (01) ==
PROVIDERS: PCP Internal Medicine; Visit Provider Internal Medicine Cardiovascular Disease
DX: I10 Essential (primary) hypertension (principal)
CPT/HCPCS: 93010; 99213

== ENCOUNTER → 2024-08-07 09:30 | Outpatient (BNVA) | payer MEDICARE, SELFPAY | PROVIDERS: PCP Internal Medicine; Visit Provider Internal Medicine Cardiovascular Disease | DX: I10 Essential (primary) hypertension (principal) | CPT/HCPCS: 93005; 99212 ==

== ENCOUNTER → 2024-08-14 07:52 | Outpatient (REF) | payer MEDICARE, SELFPAY ==
--- NOTE | 2024-08-14 07:59 | CA_ITS ---
Transthoracic Echocardiogram Patient (Last, First, Middle): Jeniffer Zaldivar, Gender: Female Date of : 1945 Age: 79 Procedure Date: 08/14/2024 Procedure Type: Transthoracic Echocardiogram Location: OP Height: 167.64 cm Weight: 64.86 kg BSA: 1.73 m2 Heart Rate: bpm BP: 124 / 80 mmHg Cashier Clerk: Referring MD: Neil Gary MD Conche Operator: Neil Gary MD Symptoms: I10 - Essential (primary) hypertension Study Quality: Good ECG Rhythm: Sinus Conclusions: - 1. Normal LV ejection fraction of 60-65% 2. Moderately dilated right ventricle with preserved systolic function 3. Moderately dilated left atrium 4. Mild mitral regurgitation 5. Mildly elevated right ventricular systolic pressure 6. Upper limits of normal ascending aortic size at 3.5 cm 7. Trivial pericardial effusion Findings Left Ventricle Normal left ventricular size, thickness, and systolic function. The visually estimated ejection fraction is between 60-65%. Spectral Doppler is indicative of an impaired relaxation filling pattern. E/E prime ratio is between 8 and 15 consistent with indeterminate filling pressures. Right Ventricle Moderately increased right ventricular cavity size. There is normal right ventricular systolic function. Atria The left atrium is moderately dilated. There is no evidence of interatrial shunt. The right atrium is likely dilated. Aortic Valve Normal aortic valve structure and function. There is no aortic valve stenosis. There is no aortic valve regurgitation. Mitral Valve There is mild anterior and posterior mitral leaflet thickening. There is mild mitral annular calcification. There is mild mitral valve regurgitation. There is no mitral valve stenosis. Pulmonic Valve The pulmonic valve is likely normal. Tricuspid Valve Normal tricuspid valve structure. There is mild tricuspid valve regurgitation. Normal right atrial pressure. Mild pulmonary hypertension is present. Great Vessels The pulmonary artery was not well visualized. Small plaque is seen in the sino tubular ridge. Venous The inferior vena cava is normal in size and collapses greater than 50% with inspiration. Pericardium/Pleural There is a trivial pericardial effusion. Prior Study Comparison Changes noted compared to prior study dated: 04/02/2021. RSVP is mildly elevated Measurements 2D Linear Measurements IVSd: 1.02 0.6-0.9/0.6-1.0 cm LVIDd: 3.94 3.9-5.3/4.2-5.9 cm LVIDd Index: 2.28 2.4-3.2/2.2-3.1 cm/m2 LVIDs: 2.62 2.0-3.6 cm LVPWd: 1.00 0.7-1.1 cm Ao Root: 2.90 2.1-3.5 cm LA Diam: 4.10 2.7-3.8/3.0-4.0 cm LAIDs Index: 2.37 1.5-2.3 cm/m2 LV Mass: 156.57 67-162/88-224 g LV Mass Index: 90.50 43-95/49-115 g/m2 LVOT Diam: 2.00 3.0+(-)1.3 cm Mitral Valve MV Pk E: 0.96 MV PK A: 0.96 MV Decel Time: 219.00 E/A: 1.00 E'Lateral: 9.79 E'Medial: 5.11 E/E' Med: 18.70 E/E' Lat: 9.80 PHT: 64.00 MVA PHT: 3.44 Decel Gordon: 4.36 Aortic Valve AoV Pk Peterson: 1.33 AoV Mn Peterson: 0.93 AoV VTI: 0.35 AoV Pk Grad: 7.00 Aov Mn Grad: 4.00 AKHIL Cont.VTI: 1.86 LVOT LVOT Pk Peterson: 0.94 LVOT Mn Peterson: 0.57 LVOT VTI: 0.21 LVOT Pk Grad: 4.00 LVOT Mn Grad: 2.00 LVOT Diam: 2.00 LVOT Area: 3.14 Diastolic Function MV Pk E: 0.96 MV Pk A: 0.96 E/A: 1.00 E'Medial: 5.11 E/E' Med: 18.70 E' Laterial: 9.79 E/E' Lat: 9.80 Right Ventricle TAPSE (mm): 28.00 Tricuspid Valve TR Pk Peterson: 3.15 TR Pk Grad: 40.00 RA Press: 3.00 RVSP: 43.00 Great Vessels Aorta Ao Root-2D: 2.90 2.0-3.7 cm Ao Asc: 3.50 2.1-3.4 cm Pulmonary Valve PV Pk Peterson: 1.14 Peak PV Grad: 5.00 Updated in Other Vendor System with Status of Final Neil Gary MD electronically signed on 08/15/2024 11:45:50 AM with status of Final
== END ==
LOC: HO.CARD 07:52
PROVIDERS: PCP Internal Medicine; Visit Provider Internal Medicine Cardiovascular Disease
DX: I10 Essential (primary) hypertension (principal)
CPT/HCPCS: 93306

== ENCOUNTER → 2024-08-14 07:59 | Outpatient (BNV) | payer MEDICARE, SELFPAY | PROVIDERS: PCP Internal Medicine; Visit Provider Internal Medicine Cardiovascular Disease | DX: I34.0 Nonrheumatic mitral (valve) insufficiency (principal); I36.1 Nonrheumatic tricuspid (valve) insufficiency | CPT/HCPCS: 93306 ==

== ENCOUNTER 2024-12-01 09:10 | Outpatient (REF) | payer MEDICARE, SELFPAY ==
--- NOTE | ~2024-12-01 | MM_ITS ---
EXAMINATION: MM SCREENING DIGITAL BREAST TOMOSYNTHESIS, BILATERAL CLINICAL INFORMATION: Screening. Asymptomatic. COMPARISON: Mammography: Comparison is made with available priors TECHNIQUE: Digital breast mammography with tomosynthesis is performed in both the craniocaudal and mediolateral oblique views along with computer-aided detection (CAD). FINDINGS: There are scattered areas of fibroglandular density (ACR BI-RADS breast composition Category b). There are no significant masses, abnormal calcifications, or other abnormalities. MM/MM tomosynthesis screening BI IMPRESSION: No mammographic evidence of malignancy. ASSESSMENT: BI-RADS BI-RADS 1 - Negative RECOMMENDATION: Routine annual mammography screening. 1 year F/U This examination should not preclude the clinical evaluation of a suspicious palpable abnormality. This patient's information was entered into a reminder system with a target due date for their next mammogram. Electronically signed by: Rufina Norman DO 12/10/2024 08:46 AM [facility]
== END 2024-12-01 09:11 | disposition home or self-care (01) ==
LOC: HO.MAMMO 09:10
PROVIDERS: PCP Internal Medicine; Visit Provider Internal Medicine
DX: Z12.31 Encounter for screening mammogram for malignant neoplasm of breast (principal)
CPT/HCPCS: 77063; 77067

== ENCOUNTER → 2024-12-01 09:30 | Outpatient (BNV) | payer MEDICARE, SELFPAY | PROVIDERS: PCP Internal Medicine; Visit Provider Internal Medicine | DX: Z12.31 Encounter for screening mammogram for malignant neoplasm of breast (principal) | CPT/HCPCS: 77063; 77067 ==

== ENCOUNTER 2025-05-01 07:54 | Outpatient (AMB) | payer MEDICARE, SELFPAY ==
--- NOTE | 2025-05-01 07:54 | A.OFFPC_ITS ---
Vital Signs 05/01/25 07:58 05/01/25 08:12 Height 5 ft 6 in Weight 63.957 kg BMI 22.8 BP 142/78 H 118/76 Respiration 18 Pulse 63 Pulse Source Pulse Oximeter Temp 97.8 F Temp Source Temporal Artery Scan Pulse Oximetry (%) 96 Oxygen Delivery Method Room Air Intake Visit Reasons: Sick visit [employer] Worker Required: No Accompanied by: Self / Same As Patient Allergies Sulfa (Sulfonamide Antibiotics) Allergy (Verified 05/01/25 07:58) joint pain, fever, rash Medication List - Last Reconciled 05/01/25 by RASHID Raymond amlodipine 5 mg PO DAILY amoxicillin-pot clavulanate 875-125 mg 1 tab PO BID atenolol 50 mg PO DAILY benzonatate 100 mg PO BID PRN lisinopril 20 mg PO DAILY triamcinolone acetonide 0.1% appl topical BID HPI HPI Comments History of Present Illness Details 80-year-old female with history of hyper tension presents to the office today to establish care and for management of chronic conditions. She is reporting upper respiratory symptoms ongoing for 3 weeks. She reports her granddaughter visited her home and was unwell. About 2 days later, she developed a cough with chest congestion with difficulty expectorating, nasal congestion, and initially fatigue. She states symptoms have been improving and then worsening again. She is now experiencing sinus pain with right-sided dental pain. Denies any fevers, chills, sore throat, headaches, myalgias, shortness of breath, wheezing, or chest pain. She states she is still active but often times feels weak following the activity. She takes Claritin on a daily basis and has been also taking Robitussin. She is compliant with her amlodipine, atenolol, lisinopril for management of her blood pressure. ROS: General: No fevers, malaise, unintentional weight loss HEENT: See HPI Cardiovascular: No chest pain, palpitations, or leg edema Respiratory: See HPI GI: No abdominal pain, nausea, vomiting, diarrhea, constipation, melena, hematochezia : No dysuria, hematuria, increased urinary frequency, decreased urinary output MSK: No myalgia, back pain Neuro: No headaches, weakness, paresthesias Skin: No rashes or lesions EXAM: Constitutional - Awake and Alert, No apparent distress Eyes - PERRLA, EOMI Nose- septum midline. Right-sided maxillary sinus tenderness to palpation/percussion Cardiovascular - S1S2, RRR, No edema Respiratory - Normal lung expansion, Normal respiratory effort, No respiratory distress, CTA bilaterally Extremities - no calf tenderness bilaterally, no swelling Skin - Warm/Dry Neurological - Alert & oriented x3 Psychological - Appropriate affect [facility] Medical History HTN (hypertension) Family History Father No problems noted. Mother CVD (cardiovascular disease) Questionnaire PHQ-9 Over the last 2 weeks, how often have you been bothered by any of the following problems? 2. Feeling down, depressed, or hopeless: more than half the days 3. Trouble falling or staying asleep, or sleeping too much: not at all 4. Feeling tired or having little energy: not at all 5. Poor appetite or overeating: several days 6. Feeling bad about yourself - or that you are a failure or have let yourself or your family down: not at all 7. Trouble concentrating on things, such as reading the newspaper or watching television: not at all 8. Moving or speaking so slowly that other people could have noticed. Or the opposite - being so fidgety or restless that you have been moving around a lot more than usual: not at all 9. Thoughts that you would be better off or of hurting yourself in some way: not at all Source: Developed by Drs. Kristofer Bob, Mariann Mckeon, Michael Cleveland and colleagues, with an educational raquel from [employer]. Physical exam (Primary Care) Vital Signs: Last Vital Signs Temp 97.8 F 05/01/25 07:58 Pulse 63 05/01/25 07:58 Resp 18 05/01/25 07:58 BP 118/76 05/01/25 08:12 Pulse Ox 96 05/01/25 07:58 Oxygen Delivery Method Room Air 05/01/25 07:58 BMI result Body Mass Index 22.8 Coding Level of Care Code New Pt Level 4 (48266) Complex EM visit Add On G2211 Diagnoses Sinusitis J32.9 URI (upper respiratory infection) J06.9 HTN (hypertension) I10 Assessment & Plan Assessment & Plan (1) Sinusitis: Code(s): J32.9 - Chronic sinusitis, unspecified Category: Medical Plan: Augmentin 875 mg b.i.d. prescribed for acute sinusitis. Recommend Claritin and can add saline for nasal rinses. Recommend increased hydration and rest. (2) URI (upper respiratory infection): Code(s): J06.9 - Acute upper respiratory infection, unspecified Category: Medical Plan: Suspect symptoms initially related to viral upper infection now complicated by bacterial sinus infection. Recommend symptomatic management with Robitussin, Claritin, saline rinses. She can also use benzonatate as needed for cough which is prescribed. Given duration of symptoms, no indication for viral testing. (3) HTN (hypertension): Code(s): I10 - Essential (primary) hypertension Category: Medical Plan: Controlled on recheck with blood pressure 118/76. Continue amlodipine 5 mg daily, atenolol 50 mg daily, and lisinopril 20 mg daily. Will evaluate renal function electrolyte levels. Low-sodium diet. Plan Follow-up as scheduled for annual physical exam. Labs ordered to be reviewed at annual exam. Take Augmentin as prescribed without skipping doses. Recommend probiotic Orders: Orders Basic Metabolic Panel Today I10 - Essential (primary) hypertension Complete Blood Count Auto Diff Today I10 - Essential (primary) hypertension Liver Panel Today Z00.00 - Encounter for general adult medical examination without abnormal findings TSH reflex Free T4 Today Z00.00 - Encounter for general adult medical examination without abnormal findings Vitamin D 25-OH Total Today Z00.00 - Encounter for general adult medical examination without abnormal findings Lipid Panel Today Z00.00 - Encounter for general adult medical examination without abnormal findings Hemoglobin A1c Today Z00.00 - Encounter for general adult medical examination without abnormal findings Medications: New amoxicillin-pot clavulanate 875-125 mg 1 tab PO BID 14 tabs 0RF benzonatate 100 mg PO BID PRN 30 caps 0RF cough
[2025-05-01 07:58] VITALS: BP 142/78; PULSE 63; RESP 18; TEMP 36.6; O2SAT 96; BMI 22.8
[2025-05-01 08:12] VITALS: BP 118/76
== END 2025-05-01 08:20 | disposition home or self-care (01) ==
LOC: HO.HMCHD 07:55
PROVIDERS: PCP Internal Medicine; Visit Provider Physician Assistant
DX: J32.9 Chronic sinusitis, unspecified (principal); J06.9 Acute upper respiratory infection, unspecified; I10 Essential (primary) hypertension

== ENCOUNTER → 2025-05-01 07:54 | Outpatient (BNVA) | payer MEDICARE, SELFPAY | PROVIDERS: PCP Internal Medicine; Visit Provider Physician Assistant | DX: Z13.89 Encounter for screening for other disorder (principal) | CPT/HCPCS: 99202 ==

== ENCOUNTER 2025-05-01 08:32 | Outpatient (REF) | payer MEDICARE, SELFPAY ==
[2025-05-01 10:37] LABS: MANUAL DIFF FLAG NO
[2025-05-01 10:49] LABS: Basophils Absolute Auto 0.1 X10*3/uL (0.0-0.2); Basophils Percent Auto 0.8 % (0-2); Eosinophils Absolute Auto 0.2 X10*3/uL (0.0-0.4); Eosinophils Percent Auto 2.6 % (0-4); Imm Gran Abs Auto 0.03 X10*3/uL (0.00-0.03); Imm Gran Pct Auto 0.4 % (0.0-0.4); Lymphocytes Absolute Auto 2.2 X10*3/uL (1.2-4.9); Mean Corpuscular HGB Conc 32.6 g/dl (31.0-35.0); Mean Corpuscular Hemoglobin 31.8 pg (27.0-33.0); Mean Corpuscular Volume 97.5 fL (80.0-98.0); Mean Platelet Volume 9.8 fL (9.4-12.3); Monocytes Absolute Auto 0.7 X10*3/uL (0.1-1.2); Neutrophils Absolute Auto 4.3 x10*3/uL (2.0-8.3); Neutrophils Percent Auto 57.2 % (45-73); Platelet Count 313 X10*3/uL (160-400); Red Blood Count 4.72 X10*6/uL (4.20-5.50); Red Cell Distribution Width 12.9 % (11.0-16.0); White Blood Count 7.4 X10*3/uL (4.8-10.8)
[2025-05-01 10:54] LABS: Estimated Average Glucose 108 mg/dL; Hemoglobin A1c % 5.4 % (<6.0)
[2025-05-01 11:35] LABS: Alanine Aminotransferase 18 U/L (0-31); Albumin Level 4.3 g/dL (3.5-5.0); Alkaline Phosphatase 96 U/L (39-117); Anion Gap 9 (12-20); Aspartate Amino Transferase 28 U/L (5-31); Bilirubin Direct 0.2 mg/dL (0.0-0.5); Bilirubin Total 0.7 mg/dL (0.0-1.0); Blood Urea Nitrogen 24 mg/dL (9-16); Calcium 9.8 mg/dL (8.4-10.2); Carbon Dioxide 28 mmol/L (22-29); Chloride 109 mmol/L (96-108); Cholesterol 177 mg/dL (<200); Estimated Glomerular Filt Rate 57; Glucose Random 100 mg/dL (60-115); HDL Cholesterol 46 mg/dL (>40); LDL Cholesterol Calculated 107 mg/dL (<100); Potassium 4.4 mmol/L (3.3-5.1); Sodium 142 mmol/L (135-145); Total Protein 7.7 g/dL (6.5-8.0); Triglycerides 122 mg/dL (<150)
[2025-05-01 11:37] LABS: TSH reflex Free T4 2.17 uIU/mL (0.32-4.0); Vitamin D 25-OH Total 60.5 ng/mL (>30)
== END 2025-05-01 08:33 | disposition home or self-care (01) ==
LOC: HO.10HDL 08:32
PROVIDERS: Visit Provider Physician Assistant
DX: Z00.00 Encounter for general adult medical examination without abnormal findings (principal); I10 Essential (primary) hypertension; J32.9 Chronic sinusitis, unspecified; J06.9 Acute upper respiratory infection, unspecified; Z13.1 Encounter for screening for diabetes mellitus
CPT/HCPCS: 36415; 80048; 80061; 80076; 82306; 83036; 84443; 85025; 99202

== ENCOUNTER 2025-05-11 10:21 | Outpatient (AMB) | payer MEDICARE, SELFPAY ==
--- NOTE | 2025-05-11 10:39 | A.OFFPC_ITS ---
Vital Signs 05/11/25 10:55 Height 5 ft 6 in Weight 63.503 kg BMI 22.6 BP 112/60 Respiration 16 Pulse 63 Pulse Source Pulse Oximeter Temp 97.7 F Temp Source Temporal Artery Scan Pulse Oximetry (%) 99 Oxygen Delivery Method Room Air Intake Visit Reasons: Cough [employer] Required: No Accompanied by: Self / Same As Patient Allergies Sulfa (Sulfonamide Antibiotics) Allergy (Verified 05/11/25 10:54) joint pain, fever, rash Medication List - Last Reconciled 05/11/25 by RASHID Raymond amlodipine 5 mg PO DAILY atenolol 50 mg PO DAILY fluticasone propionate 50 mcg/actuation (Allergy Relief (fluticasone)) 1 spray intranasal Q12H lisinopril 20 mg PO DAILY prednisone 40 mg (2 x 20 mg) PO DAILY triamcinolone acetonide 0.1% appl topical BID HPI HPI Comments History of Present Illness Details 80-year-old female with history of hyper tension presents to the office today for follow-up. She was seen in the office 10 days ago for upper respiratory symptoms/sinusitis and was prescribed Augmentin with good improvement in symptoms. She reports the sinus pain, congestion, rhinorrhea did resolve. However about 2 days ago, she began experiencing and occasionally productive cough again reported as more annoying. There is no shortness of breath or wheezing. No fevers, chills, sore throat. She had been using benzonatate but stopped this given her improvement in symptoms. She does continue using loratadine on a daily basis. ROS: General: No fevers, malaise, unintentional weight loss HEENT: See HPI Cardiovascular: No chest pain, palpitations, or leg edema Respiratory: See HPI GI: No abdominal pain, nausea, vomiting, diarrhea, constipation, melena, hematochezia : No dysuria, hematuria, increased urinary frequency, decreased urinary output MSK: No myalgia, back pain Neuro: No headaches, weakness, paresthesias Skin: No rashes or lesions EXAM: Constitutional - Awake and Alert, No apparent distress Eyes - PERRLA, EOMI Nose- septum midline. Right-sided maxillary sinus tenderness to palpation/percussion Cardiovascular - S1S2, RRR, No edema Respiratory - Normal lung expansion, Normal respiratory effort, No respiratory distress, CTA bilaterally Extremities - no calf tenderness bilaterally, no swelling Skin - Warm/Dry Neurological - Alert & oriented x3 Psychological - Appropriate affect completed amoxillin 2 days later cough back better than last time. some what productive. no sob, wheezing. no asthma copd. no fevers not as bothersome nasal congestion, some headache. [facility] Medical History HTN (hypertension) Family History Father No problems noted. Mother CVD (cardiovascular disease) Physical exam (Primary Care) Vital Signs: Last Vital Signs Temp 97.7 F 05/11/25 10:55 Pulse 63 05/11/25 10:55 Resp 16 05/11/25 10:55 BP 112/60 05/11/25 10:55 Pulse Ox 99 05/11/25 10:55 Oxygen Delivery Method Room Air 05/11/25 10:55 BMI result Body Mass Index 22.6 Coding Level of Care Code Est Pt Level 4 (96047) Diagnoses Cough R05.9 Assessment & Plan Assessment & Plan (1) Cough: Code(s): R05.9 - Cough, unspecified Category: Medical Plan: Upper respiratory symptoms including cough improved following Augmentin by cough as recurred though is not severe it is only occasionally productive. No significant wheezing on exam to suggest bronchitis and Augmentin should have effectively treated any typical bacterial infection and sinusitis. Given cough is only occasionally productive and there are no fevers, it is unlikely this is an atypical pneumonia. We did discuss the possibility of cough being related to lisinopril. We will trial a short course of prednisone 40 mg for 3 days to see if there is improvement in symptoms. She is also recommended to continue using antihistamine as well as nasal sprays. Should there be no improvement, will hold lisinopril to monitor for any improvement in symptoms. Medications: New prednisone 40 mg (2 x 20 mg) PO DAILY 6 tabs 0RF fluticasone propionate 50 mcg/actuation (Allergy Relief (fluticasone)) administer into each nostril 1 spray intranasal Q12H 16 grams 2RF
[2025-05-11 10:55] VITALS: BP 112/60; PULSE 63; RESP 16; TEMP 36.5; O2SAT 99; BMI 22.6
== END 2025-05-11 11:35 | disposition home or self-care (01) ==
LOC: HO.HMCHD 10:22
PROVIDERS: PCP Internal Medicine; Visit Provider Physician Assistant
DX: R05.9 Cough, unspecified (principal)

== ENCOUNTER → 2025-05-11 10:21 | Outpatient (BNVA) | payer MEDICARE, SELFPAY | PROVIDERS: PCP Internal Medicine; Visit Provider Physician Assistant | DX: R05.9 Cough, unspecified (principal); I10 Essential (primary) hypertension | CPT/HCPCS: 99212 ==

== ENCOUNTER 2025-05-31 08:51 | Outpatient (AMB) | payer MEDICARE, SELFPAY ==
--- NOTE | 2025-05-31 08:53 | MHC.PC.OV ---
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 BP is well controlled. Denies chest pain, exertional dyspnea. Osteopenia: On vitamin D, calcium Cologuard negative 04/2023 Mammo 11/2024 DXA-2021. ROS CONSTITUTIONAL: Denies weight loss, fever and chills. HEENT: Denies changes in vision and hearing. RESPIRATORY: Denies SOB and cough. CV: Denies palpitations and CP GI: Denies abdominal pain, nausea, vomiting and diarrhea. : Denies dysuria and urinary frequency. MSK: Denies new myalgia and joint pain. SKIN: Denies rash and pruritus. NEUROLOGICAL: Denies headache PSYCHIATRIC: Denies recent changes in mood. PHYSICAL EXAM: GENERAL: Alert and oriented x 3. NAD EYES: EOMI. Anicteric. HENT: Moist mucous membranes. No scleral icterus. No cervical lymphadenopathy. LUNGS: Clear to auscultation bilaterally. CARDIOVASCULAR: Regular rate and rhythm. No murmur. No JVD. ABDOMEN: Soft, non-tender +bs EXTREMITIES: No edema. Non-tender. SKIN: No rashes or lesions. Warm. NEUROLOGIC: No focal neurological deficits. CN II-XII grossly intact PSYCHIATRIC: Cooperative. Appropriate mood and affect [facility] Medical History HTN (hypertension) Family History Father No problems noted. Mother CVD (cardiovascular disease) Physical exam (Primary Care) Vital Signs: Last Vital Signs Temp 97.9 F 05/31/25 08:58 Pulse 65 05/31/25 08:58 BP 120/60 05/31/25 08:58 Pulse Ox 96 05/31/25 08:58 Oxygen Delivery Method Room Air 05/31/25 08:58 BMI result Body Mass Index 22.6 Coding Level of Care Code Est Pt Prev Care >65y(34175) Diagnoses Physical exam Z00.00 Primary hypertension I10 Hypertension type: primary hypertension Assessment & Plan Assessment & Plan (1) Physical exam: Code(s): Z00.00 - Encounter for general adult medical examination without abnormal findings (2) HTN (hypertension): Code(s): I10 - Essential (primary) hypertension Category: Medical Qualifiers: Hypertension type: primary hypertension Qualified Code(s): I10 - Essential (primary) hypertension Plan 80 year old female presenting for annual exam Interval history reviewed Some residual cough HTN-controlled on current medications DXA ordered Orders: Orders MM screening mammo BI 6 Months Z12.31 - Encounter for screening mammogram for malignant neoplasm of breast XR DEXA axial skeleton 6 Months M85.80 - Other specified disorders of bone density and structure, unspecified site
[2025-05-31 08:58] VITALS: BP 120/60; PULSE 65; TEMP 36.6; O2SAT 96; BMI 22.6
== END 2025-05-31 09:33 | disposition home or self-care (01) ==
LOC: HO.HMCHD 08:52
PROVIDERS: PCP Internal Medicine; Visit Provider Internal Medicine
DX: Z00.00 Encounter for general adult medical examination without abnormal findings (principal); I10 Essential (primary) hypertension

== ENCOUNTER → 2025-05-31 08:51 | Outpatient (BNVA) | payer MEDICARE, SELFPAY | PROVIDERS: PCP Internal Medicine; Visit Provider Internal Medicine | DX: Z00.00 Encounter for general adult medical examination without abnormal findings (principal); I10 Essential (primary) hypertension; M85.80 Other specified disorders of bone density and structure, unspecified site; Z79.899 Other long term (current) drug therapy | CPT/HCPCS: 99397 ==